=== PATIENT | male | born 1955 | race Caucasian/White ===

== ENCOUNTER 2021-02-22 14:53 | Emergency (ER) | payer BC, SELFPAY ==
[2021-02-22 14:53] VITALS: BP 131/77; PULSE 68; RESP 15; TEMP 36.2; O2SAT 99
--- NOTE | 2021-02-22 15:20 | PC.NURSE ---
pt was pulling metal off a pool and he injured his low back.
--- NOTE | 2021-02-22 15:43 | DI.RAD.S_ITS ---
PROCEDURE: XR LUMBAR SPINE 2-3V INDICATIONS: lower back pain sp lifting TECHNIQUE: 3 views of the lumbar spine were acquired. COMPARISON: None. FINDINGS: Bones: 5 [id number] vertebrae are present. There is normal bony alignment. No vertebral body compression fractures. No suspicious bony lesions. Mild degenerative disease at L2-L3, L3-L4 and L4-L5. Soft tissues: Overlying bowel gas pattern is normal. No suspicious soft tissue calcifications. IMPRESSION: 1. No acute osseous abnormalities. 2. Mild degenerative disc disease. Dictated by: Florencio Alvarez M.D. on 02/22/2021 at 16:26 Approved by: Florencio Alvarez M.D. on 02/22/2021 at 16:27
[2021-02-22] MEDS: CYCLOBENZAPRINE 10 MG TABLET PO (16:08)
[2021-02-22] MEDS: LIDOCAINE PATCH 1 EACH ADH..PATCH TOP (16:08)
--- NOTE | 2021-02-22 16:21 | ED.BACK ---
HPI - Back Pain/Injury <PAVAN SantoBC - Last Filed: 02/22/21 18:53> General Chief Complaint: Back Pain/Injury Stated Complaint: Back pain after injury Time Seen by Provider: 02/22/21 14:55 Source: patient and EMS Mode of arrival: EMS Limitations: no limitations History of Present Illness HPI Narrative: The patient is a 65-year-old male who presents by [facility] for chief complaint of lower back pain. He states that he was pulling a piece of metal off of a pool, felt a sudden pop in his back and sudden pain. States that the pain was debilitating. He was able to take several steps and then laid down on a mattress. He was given 30 mg of IM Toradol en route. He denies any incontinence of bowel, incontinence of bladder, any numbness or tingling. He rates his pain at a 3 to 4/10. It is worse with movement. He states his pain is in his lower back. He states he has history of home us O's on his lower back, though no fractures or known issues. Related Data Previous Rx's Medication Instructions Recorded cyclobenzaprine 10 mg tablet 10 mg PO TID PRN #20 tab 02/22/21 hydrocodone 5 mg-acetaminophen 325 1 tab PO Q4-6H PRN #10 tab 02/22/21 mg tablet ketorolac 10 mg tablet 10 mg PO TID PRN #14 tab 02/22/21 lidocaine 5 % topical patch 1 patch TOPICAL DAILY PRN #15 ea 02/22/21 Allergies Allergy/AdvReac Type Severity Reaction Status Date / Time No Known Drug Allergies Allergy Verified 02/22/21 14:58 Review of Systems <BARRY Santo - Last Filed: 02/22/21 18:53> Review of Systems Narrative: GENERAL: Denies chills, fatigue, malaise, fever, sweats. HEENT: Denies sinus pain, ear pain, sore throat, difficulty swallowing, dizziness. RESPIRATORY: Denies dyspnea, cough, wheezing, hemoptysis, sputum. CARDIOVASCULAR: Denies chest pain, palpitations, orthopnea, edema, GASTROINTESTINAL: Denies nausea, vomiting, abdominal pain, diarrhea, constipation, melena. : Denies dysuria, frequency, incontinence, hematuria, urinary retention. MUSCULOSKELETAL: see HPI SKIN: Denies rash, skin lesions, or other NEUROLOGIC: Denies weakness, headache, numbness, change in speech, confusion, seizures, incoordination. PSYCHIATRIC: No concerning psychosocial issues. 12 point review of systems is negative except for those stated above Patient History <BARRY Santo - Last Filed: 02/22/21 18:53> Social History Smoking Status: Never smoker Smoking Status: Never smoker alcohol intake frequency: 0-2 drinks per day Substance Use Type: does not use Exam <BARRY Santo - Last Filed: 02/22/21 18:53> Narrative Exam Narrative: GENERAL: This is a well-nourished, well-developed patient, in no acute distress laying on stretcher HEAD: Atraumatic. Normocephalic. No temporal or scalp tenderness. EYES: Pupils equal round and reactive. Extraocular motions intact. No scleral icterus. No injection or drainage. ENT: Nose without bleeding, purulent drainage or septal hematoma. wearing a mask. Airway patent. NECK: Trachea midline. No JVD or lymphadenopathy. Supple, nontender, no meningeal signs. CARDIOVASCULAR: Regular rate and rhythm RESPIRATORY: no cough. No increased respiratory effort. No accessory muscle use. EXTREMITIES: No clubbing, cyanosis, or edema. No joint tenderness, effusion, or edema noted. strength is equal upper lower extremities bilaterally. BACK: no tenderness to C or T-spine palpation. Tenderness to L-spine palpation. Tenderness to bilateral lumbar paraspinal muscle palpation. NEURO: AOx3. SKIN: No rash or erythema On visible skin Initial Vital Signs Initial Vital Signs: Vital Signs Temperature 97.1 F L 02/22/21 14:53 Pulse Rate 68 02/22/21 14:53 Respiratory Rate 15 02/22/21 14:53 Blood Pressure 131/77 02/22/21 14:53 Pulse Oximetry 99 02/22/21 14:53 <Sita Arrieta DO - Last Filed: 02/23/21 08:56> Initial Vital Signs Initial Vital Signs: Vital Signs Temperature 97.1 F L 02/22/21 14:53 Pulse Rate 68 02/22/21 14:53 Respiratory Rate 15 02/22/21 14:53 Blood Pressure 131/77 02/22/21 14:53 Pulse Oximetry 99 02/22/21 14:53 Scores <BARRY Santo - Last Filed: 02/22/21 18:53> GCS [place] coma scale eye opening: Spontaneous [place] coma scale verbal response: Orientated [place] coma scale motor response: Obey commands [place] coma scale total score: 15 <Sita Arrieta DO - Last Filed: 02/23/21 08:56> GCS [place] coma scale total score: 15 Course <BARRY Santo - Last Filed: 02/22/21 18:53> Orders Ordered: Discontinued Medications Hydrocodone Bitart/Acetaminophen (Hydrocodone/Acet 5/325 Tablet) 1 tab PO NOW ONE Stop: 02/22/21 18:00 Last Admin: 02/22/21 18:22 Dose: 1 tab Documented by: LAURA Cyclobenzaprine HCl (Cyclobenzaprine 10 Mg Tablet) 10 mg PO NOW ONE Stop: 02/22/21 15:31 Last Admin: 02/22/21 16:08 Dose: 10 mg Documented by: LAURA Lidocaine (Lidocaine Patch 1 Each Adh..Patch) 1 each TOP NOW ONE Stop: 02/22/21 15:31 Last Admin: 02/22/21 16:08 Dose: 1 each Documented by: LAURA Lidocaine (Remove Lidocaine Patch) 1 each TOP BEDTIME PATTIE Vital Signs Vital signs: Vital Signs - 8 hr 02/22/21 14:53 02/22/21 18:42 Temperature 97.1 F L Pulse Rate 68 80 Respiratory Rate 15 Blood Pressure 131/77 119/69 Pulse Oximetry 99 97 <Sita Arrieta DO - Last Filed: 02/23/21 08:56> Orders Ordered: Discontinued Medications Hydrocodone Bitart/Acetaminophen (Hydrocodone/Acet 5/325 Tablet) 1 tab PO NOW ONE Stop: 02/22/21 18:00 Last Admin: 02/22/21 18:22 Dose: 1 tab Documented by: LAURA Cyclobenzaprine HCl (Cyclobenzaprine 10 Mg Tablet) 10 mg PO NOW ONE Stop: 02/22/21 15:31 Last Admin: 02/22/21 16:08 Dose: 10 mg Documented by: LAURA Lidocaine (Lidocaine Patch 1 Each Adh..Patch) 1 each TOP NOW ONE Stop: 02/22/21 15:31 Last Admin: 02/22/21 16:08 Dose: 1 each Documented by: RSTONE Lidocaine (Remove Lidocaine Patch) 1 each TOP BEDTIME PATTIE Vital Signs Vital signs: Vital Signs - 8 hr 02/22/21 14:53 02/22/21 18:42 Temperature 97.1 F L Pulse Rate 68 80 Respiratory Rate 15 Blood Pressure 131/77 119/69 Pulse Oximetry 99 97 [facility] - Back Pain/Injury <BARRY Santo - Last Filed: 02/22/21 18:53> Imaging Data Lumbar xray : Radiologist's Impression: [address] [place] [id number] XRay Report Signed Patient: Augustin Fisher MR#: [id number] : 1955 Acct:[id number] Age/Sex: 65 / M Date of Service: 02/22/21 Loc: ED Accession Number: [id number] ?? Procedure: XR lumbar spine 2-3V Ordering Provider: Berenice Zamora PROCEDURE:? XR LUMBAR SPINE 2-3V ? INDICATIONS:? lower back pain sp lifting ? TECHNIQUE:? 3 views of the lumbar spine were acquired.? ? COMPARISON:? None. ? FINDINGS:? ? Bones:? 5 [id number] vertebrae are present.? There is normal bony alignment.? No vertebral body compression fractures.? No suspicious bony lesions.? Mild degenerative disease at L2-L3, L3-L4 and L4-L5. ? Soft tissues:? Overlying bowel gas pattern is normal.? No suspicious soft tissue calcifications.? ? ? IMPRESSION:? ? 1. No acute osseous abnormalities. 2. Mild degenerative disc disease.? ? ? Dictated by: Florencio Alvarez M.D. on 02/22/2021 at 16:26 ? ? Approved by: Florencio Alvarez M.D. on 02/22/2021 at 16:27 ? [facility] Narrative Medical decision making narrative: The patient is a 65-year-old male who presents with a chief complaint of lower back pain after lifting something heavy. He has no red flag symptoms of incontinence of bowel, incontinence of bladder or saddle anesthesia and states understanding that these are return precautions. He has negative films of his back. He feels much improved after the above-stated therapies and I provided prescriptions of these medications. I discussed at length follow up with primary care provider in the next few days as he may benefit from further imaging, physical therapy etcetera. Discussed at length return precautions of incontinence of bowel, incontinence of bladder or saddle anesthesia he states understanding aura. Patient has no fever or history of cancer. No questions or concerns upon discharge was able to pass ambulation trial prior to discharge. Discharge Plan Departure Patient Disposition: Home Clinical Impression: Acute back pain Qualifiers: Back pain location: low back pain Back pain laterality: bilateral Sciatica presence: without sciatica Qualified Code(s): M54.50 - Low back pain, unspecified Strain of lumbar region Qualifiers: Encounter type: initial encounter Qualified Code(s): S39.012A - Strain of muscle, fascia and tendon of lower back, initial encounter Instructions: DI for Low Back Pain, DI for Muscle Strain, DI for Back Spasm, DI for Back Strain or Sprain Activity Restrictions/Additional Instructions: Thank you for trusting us with your care today. As I discussed, your x-ray shows no acute fracture. This does not rule out a soft tissue injury such as a ligament or tendon injury. It is important that you follow up with primary care provider, especially if worsening or no improvement. There can be fractures that did not show up on initial x-ray. as discussed, please follow-up with primary care provider in the next few days. Please come back to the emergency department for any acute concerns such as incontinence of bowel, incontinence of bladder or numbness in Your groin. I sent for prescriptions to [facility]. This includes a muscle relaxer, which can be sedating. Includes ketorolac or Toradol which is an NSAID. Do not combine this with other NSAIDs such as ibuprofen relief. Please take this with food. It also includes [place] for pain, which can be constipating and sedating. I have given you a work note. Please follow-up with primary care provider in the next few days and come back to the ER for any acute concerns. Prescriptions: New hydrocodone-acetaminophen 5-325 mg tablet 1 tab PO Q4-6H PRN (Reason: pain) Qty: 10 RF: 0 cyclobenzaprine 10 mg tablet 10 mg PO TID PRN (Reason: muscle spasm) Qty: 20 RF: 0 lidocaine 5 % adhesive patch,medicated 1 patch topical DAILY PRN (Reason: pain) Qty: 15 RF: 0 ketorolac 10 mg tablet 10 mg PO TID PRN (Reason: pain) Qty: 14 RF: 0 Stand Alone Forms: Work Release Note <Sita Arrieta, DO - Last Filed: 02/23/21 08:56> Cosign ED Attending Cosignature Attestation: I was immediately available in the department for consultation. Documentation has been reviewed. I agree with assessment and plan.
[2021-02-22] MEDS: HYDROCODONE/ACET 5/325 TABLET 1 TAB PO (18:22)
[2021-02-22 18:42] VITALS: BP 119/69; PULSE 80; O2SAT 97
--- NOTE | 2021-02-22 18:47 | PC.NURSE ---
pt was able to ambulate in the room. walks slowly with caution
== END 2021-02-22 18:58 | disposition home or self-care (01) ==
PROVIDERS: Emergency Provider Nurse Practitioner Family
DX: S39.012A Strain of muscle, fascia and tendon of lower back, initial encounter (principal); X50.0XXA Overexertion from strenuous movement or load, initial encounter
CPT/HCPCS: 72100; 99284